=== PATIENT | female | born 1950 | race African-American/Black ===

== ENCOUNTER → 2019-03-17 | Outpatient (CLI) | payer MEDICARE, OTHER ==
--- NOTE | 2019-03-17 10:13 | KCIC ---
BILATERAL DIAGNOSTIC 3-D MAMMOGRAPHY History: Left breast heaviness and generalized pain times months. Left breast larger than right. Comparison: Bilateral mammogram March 28, 2015. Technique: Routine MLO and CC tomosynthesis (3D) digital views performed. Images reviewed by the radiologist at dedicated workstation. Findings: Breast Tissue Density B : There are scattered areas of fibroglandular density. There are no dominant masses, suspicious microcalcifications or architectural distortion. IMPRESSION: No mammographic evidence of malignancy. Recommend routine follow-up. BI-RADS category 1: Negative. The images were reviewed with computer-aided detection. Patient information is entered into the reminder system with a target due date for the next screening mammogram. Mammography is the most sensitive method for finding small breast cancers, but it does not detect them all and is not a substitute for careful clinical examination. A negative mammogram does not negate a clinically suspicious finding and should not result in delay in biopsying a clinically suspicious abnormality. "Our facility is accredited by the [employer] Mammography Program." Electronically signed by: Davis Sargent MD (03/17/2019 10:09 AM) [id number]
== END | disposition home or self-care (01) ==
LOC: KCIC MAMMO 08:54
PROVIDERS: ATTEND Family Medicine
DX: N64.59 Other signs and symptoms in breast (principal); N64.4 Mastodynia
CPT/HCPCS: 77066; G0279; 77062

== ENCOUNTER → 2020-03-14 | Outpatient (CLI) | payer MEDICARE, OTHER ==
--- NOTE | 2020-03-14 12:15 | KCIC ---
Bone densitometry. Clinical history: Postmenopausal -[place] female. Lumbar spine: L1-L4. The technical acquisition is adequate. The bone mineral density across the aggregate of L1-L4 is 0.886 gm/cm2. This corresponds to a Z-score of 0.0 which is consistent with normal bone mineral density. At this bone density level, fracture risk is normal. Hip: Left. The technical acquisition is adequate. The bone mineral density at the the left total femur is 0.855 gm/cm2. This corresponds to a Z-score of 0.0 which is consistent with normal bone mineral density. At this bone density level, fracture risk is normal. Impression: 1. Normal bone mineral density of the lumbar spine. Note: Definitions established by the World Health Organization: 1. Normal: T-score is -1.0 or above. 2. Osteopenia: T-score is between -1.0 and -2.5. 3. Osteoporosis: T-score is -2.5 or below. Electronically signed by: Niels Mendosa MD (03/14/2020 12:12 PM) [id number]
== END ==
LOC: KCIC DEXA 10:58
PROVIDERS: ATTEND Family Medicine
DX: Z78.0 Asymptomatic menopausal state (principal)
CPT/HCPCS: 77080